=== PATIENT | female | born 1995 | race Caucasian/White ===

== ENCOUNTER 2017-10-27 12:25 | Observation (INO) ==
[2017-10-27 10:00] LABS: Bilirubin,Urine Negative (Negative); Blood,Urine Negative (Negative); Clarity,Urine Cloudy (Clear); Color,Urine Yellow (Yellow); Glucose,Urine (UA) Normal (Normal); Ketones,Urine Negative (Negative); Leukocyte Esterase,Urine Negative (Negative); Nitrite,Urine Negative (Negative); Protein,Urine Negative (Neg-Trace); Specific Gravity,Urine < 1.005 (1.010-1.025); Urobilinogen,Urine Normal (Normal)
[2017-10-27 10:01] LABS: Bacteria,Urine Moderate per hpf (None-Few); Hyaline Casts,Urine None Seen per lpf (None-Few); RBC,Urine 0-3 per hpf (0-3); Squamous Epithelial Cell,Urine Many per lpf (None-Few)
[2017-10-27 10:13] LABS: Amphetamine Screen,Urine Negative ng/mL (Cutoff=1000); Barbiturate Screen,Urine Negative ng/mL (Cutoff=200); Benzodiazepines Screen,Urine Negative ng/mL (Cutoff=200); Cannabinoid Screen,Urine Negative ng/mL (Cutoff = 50); Cocaine Screen,Urine Negative ng/mL (Cutoff= 300); Opiate Screen,Urine Negative ng/mL (Cutoff=300); Phencyclidine Screen,Urine Negative ng/mL (Cutoff=25)
--- NOTE | 2017-10-27 12:29 | OB/GYN Progress Note ---
Date of Encounter: 10/27/17 Time of Encounter: 12:27 - Assessment and Plan (1) 24 weeks gestation of Current Visit: Yes Status: Acute (2) Round ligament pain Current Visit: Yes Status: Acute denies UTI symptoms, cervix closed no contraction on tracing, discussed round ligament pain in with patient. Discharged home with labor and when to return to triage precautions. Subjective - Subjective Interval history: 24+5 presents to [facility] with complaints of abdominal and back pain, Pt states she first noticed pain tonight and it woke her up from sleeping, pain in abdomen with moving and going from sitting to standing, repositioning in bed. reports good movement, denies vaginal bleeding or leaking of fluid. Antepartum ROS: movement normal, no loss of fluid, no vaginal bleeding, no contractions Objective - Vital Signs Vital Signs: Intake and Output 10/26/17 10/27/17 10/27/17 23:59 07:59 15:59 Other: Weight 133.47 kg Patient Weight 10/27/17 23:59 Weight 133.47 kg - Exam FHR: auscultation normal FHR comments: appropriate for gestational age Abdomen: Present: soft, gravid Cervical dilation: closed/thick/high - Labs Labs: Abnormal lab results Urine Clarity Cloudy (Clear) A 10/27/17 08:24 Ur Specific [place] < 1.005 (1.010-1.025) L 10/27/17 08:24 Urine Microscopic WBC 5-15 per hpf (0-3) H 10/27/17 08:24 Ur Squamous Epith Cells Many per lpf (None-Few) H 10/27/17 08:24 Urine Bacteria Moderate per hpf (None-Few) H 10/27/17 08:24
== END 2017-10-27 12:33 | disposition home or self-care (01) ==
LOC: 1NENULAB
PROVIDERS: ADMIT Obstetrics & Gynecology; ATTEND Obstetrics & Gynecology

== ENCOUNTER → 2017-11-24 13:06 | Observation (INO) ==
[2017-11-24 06:57] LABS: Bilirubin,Urine Negative (Negative); Blood,Urine Negative (Negative); Clarity,Urine Cloudy (Clear); Color,Urine Yellow (Yellow); Glucose,Urine (UA) Normal (Normal); Ketones,Urine Negative (Negative); Leukocyte Esterase,Urine Small (Negative); Nitrite,Urine Negative (Negative); Protein,Urine Negative (Neg-Trace); Specific Gravity,Urine 1.024 (1.010-1.025); Urobilinogen,Urine Normal (Normal)
[2017-11-24 07:00] LABS: Bacteria,Urine Many per hpf (None-Few); Hyaline Casts,Urine None Seen per lpf (None-Few); RBC,Urine 0-3 per hpf (0-3); Squamous Epithelial Cell,Urine Many per lpf (None-Few)
[2017-11-24 07:19] LABS: Amphetamine Screen,Urine Negative ng/mL (Cutoff=1000); Barbiturate Screen,Urine Negative ng/mL (Cutoff=200); Benzodiazepines Screen,Urine Negative ng/mL (Cutoff=200); Cannabinoid Screen,Urine Negative ng/mL (Cutoff = 50); Cocaine Screen,Urine Negative ng/mL (Cutoff= 300); Opiate Screen,Urine Negative ng/mL (Cutoff=300); Phencyclidine Screen,Urine Negative ng/mL (Cutoff=25)
--- NOTE | 2017-11-24 12:13 | OB/GYN Progress Note ---
Date of Encounter: 11/24/17 Time of Encounter: 12:10 - Assessment and Plan (1) 28 weeks gestation of Current Visit: Yes Status: Acute (2) Status post fall Current Visit: Yes Status: Acute No contractions, leaking or bleeding. Blood type A positive. FHT reassuring. Discharge home with precautions. Pt to be off work this evening. Subjective - Subjective Interval history: presenting at 28w5d with s/p fall at work yesterday. She slipped on a wet floor and her feet went out from under her. She reports point of impact was her lower back. She was not feeling movement after the fall but has been feeling movement in triage. She reports back soreness but this has improved with Tylenol and ice. No leaking, cramping, or bleeding. Antepartum ROS: movement normal, no loss of fluid, no vaginal bleeding, no contractions Objective - Vital Signs Vital Signs: Intake and Output 11/23/17 11/24/17 11/24/17 23:59 07:59 15:59 Other: Weight 117.934 kg Patient Weight 11/24/17 23:59 Weight 117.934 kg - Exam FHR: category 1 FHR comments: FHT reassuring for GA Auscultation: bilateral: normal Abdomen: Present: soft, gravid Uterus: Absent: tenderness Comments: mild TTP on lower back, no bruising noted - Labs Labs: Abnormal lab results Urine Clarity Cloudy (Clear) A 11/24/17 06:45 Ur Leukocyte Esterase Small (Negative) H 11/24/17 06:45 Urine Microscopic WBC 5-15 per hpf (0-3) H 11/24/17 06:45 Ur Squamous Epith Cells Many per lpf (None-Few) H 11/24/17 06:45 Urine Bacteria Many per hpf (None-Few) H 11/24/17 06:45 Ur Culture Indicated? NO. (NO) A 11/24/17 06:45
[~2017-11-24 13:06] MED LIST: Acetaminophen 325 MG TABLET PO ONE
== END | disposition home or self-care (01) ==
LOC: 1NENULAB
PROVIDERS: ADMIT Advanced Practice Midwife; ATTEND Advanced Practice Midwife

== ENCOUNTER → 2017-12-29 19:17 | Observation (INO) ==
--- NOTE | 2017-12-29 18:18 | OB/GYN Progress Note ---
Date of Encounter: 12/29/17 Time of Encounter: 18:13 - Assessment and Plan (1) 33 weeks gestation of Current Visit: Yes Status: Acute No pooling noted. Fern negative. GC/CT & Vaginosis panel pending. Will follow-up Kick counts reviewed. Discharge home with precautions. Subjective - Subjective Principal diagnosis: Loss of Fluid and contractions Interval history: 22 y/o presenting at 33w5d with concern for loss of fluid and contractions. She reports she feels like she has been leaking fluid since yesterday afternoon and irregular contractions that began today. Denies VB. Reports good FM. Antepartum ROS: new complaints, loss of fluid, movement normal, contractions, no vaginal bleeding Objective - Vital Signs Vital Signs: Intake and Output 12/29/17 12/29/17 12/29/17 07:59 15:59 23:59 Other: Weight 124.6 kg Patient Weight 12/29/17 23:59 Weight 124.6 kg - Exam FHR: auscultation normal FHR comments: NST reactive, FHR baseline 135bpm Auscultation: bilateral: normal Abdomen: Present: normal appearance, soft, gravid Cervical dilation: fingertip Cervix effacement: thick station: high
[2017-12-29 18:24] LABS: Bilirubin,Urine Negative (Negative); Blood,Urine Negative (Negative); Clarity,Urine Cloudy (Clear); Color,Urine Yellow (Yellow); Glucose,Urine (UA) Normal (Normal); Ketones,Urine Negative (Negative); Leukocyte Esterase,Urine Negative (Negative); Nitrite,Urine Negative (Negative); PH,Urine 6.5 pH Units (5.0-8.0); Protein,Urine Negative (Neg-Trace); Specific Gravity,Urine 1.006 (1.010-1.025); Urobilinogen,Urine Normal (Normal)
[2017-12-29 18:26] LABS: Bacteria,Urine Few per hpf (None-Few); Hyaline Casts,Urine None Seen per lpf (None-Few); RBC,Urine 0-3 per hpf (0-3); Squamous Epithelial Cell,Urine Many per lpf (None-Few)
[2017-12-29 18:34] LABS: Amphetamine Screen,Urine Negative ng/mL (Cutoff=1000); Barbiturate Screen,Urine Negative ng/mL (Cutoff=200); Benzodiazepines Screen,Urine Negative ng/mL (Cutoff=200); Cannabinoid Screen,Urine Negative ng/mL (Cutoff = 50); Cocaine Screen,Urine Negative ng/mL (Cutoff= 300); Opiate Screen,Urine Negative ng/mL (Cutoff=300); Phencyclidine Screen,Urine Negative ng/mL (Cutoff=25)
[2017-12-29 19:10] LABS: Gardnerella DNA DETECTED (Not Detect); Trichomonas DNA Not Detected (Not Detect)
[2017-12-29 19:11] LABS: Candida DNA Not Detected (Not Detect)
== END | disposition home or self-care (01) ==
LOC: 1NENULAB
PROVIDERS: ADMIT Registered Nurse; ATTEND Registered Nurse